=== PATIENT | female | born 1990 | race American Indian/Alaskan Native ===

== ENCOUNTER 2021-06-04 14:37 | Emergency (ER) | payer MEDICAID ==
--- NOTE | 2021-06-04 15:02 | Emergency Department Report ---
HPI - HPI HPI: Triage The patient is a 31-year-old female present with a chief complaint of chest pain. The patient states for the past 2 days she has had intermittent left- sided chest pain described as feeling as though someone is holding her heart. Patient denies shortness of breath, nausea/vomiting or diaphoresis with her chest pain. Patient denies any recent flights or long car trips. Patient denies pleurisy. Patient denies history of cough or fever. Patient has been vaccinated against Covid and received her second vaccination approximately 2 weeks ago. There is no family history of premature heart disease <FLAKITA SOL - Last Filed: 06/04/21 14:58> <KWAKUSTAN - Last Filed: 06/05/21 01:11> - General Time Seen by Provider: 06/04/21 14:48 ED Past Medical Hx - Past Medical History Previous Medical History?: No - Surgical History Past Surgical History?: No - Family History Family history: no significant - Social History Substance Use Type: Alcohol (Occasional), Marijuana <FLAKITA SOL - Last Filed: 06/04/21 14:58> ED Review of Systems ROS: Stated complaint: CHEST PAIN Other details as noted in HPI Constitutional: denies: diaphoresis, fever Eyes: denies: eye pain ENT: denies: throat pain Respiratory: denies: cough, shortness of breath Cardiovascular: chest pain Endocrine: no symptoms reported Gastrointestinal: denies: nausea, vomiting Genitourinary: denies: dysuria Musculoskeletal: denies: back pain Neurological: denies: headache <FLAKITA SOL - Last Filed: 06/04/21 14:58> ROS: Stated complaint: CHEST PAIN Other details as noted in HPI <KWAKUSTAN - Last Filed: 06/05/21 01:11> Physical Exam - Physical Exam Physical Exam: GENERAL: The patient is well-developed well-nourished female sitting on stretcher not appearing to be in acute distress. [] HEENT: Normocephalic. Atraumatic. Extraocular motions are intact. Patient has moist mucous membranes. NECK: Supple. Trachea midline CHEST/LUNGS: Clear to auscultation. There is no respiratory distress noted. HEART/CARDIOVASCULAR: Regular. There is no tachycardia. There is no gallop rub or murmur. ABDOMEN: Abdomen is soft, nontender. Patient has normal bowel sounds. There is no abdominal distention. SKIN: There is no rash. There is no edema. There is no diaphoresis. NEURO: The patient is awake, alert, and oriented. The patient is cooperative. The patient has no focal neurologic deficits. The patient has normal speech and gait. GCS 15 MUSCULOSKELETAL: There is no evidence of acute injury. <FLAKITA SOL - Last Filed: 06/04/21 14:58> - Physical Exam Vital Signs: Vital Signs 06/04/21 15:12 Temperature 98.3 F Pulse Rate 81 Respiratory 16 Rate Blood Pressure 121/83 O2 Sat by Pulse 100 Oximetry <STAN AMES - Last Filed: 06/05/21 01:11> ED Course Vital Signs 06/04/21 15:12 Temperature 98.3 F Pulse Rate 81 Respiratory 16 Rate Blood Pressure 121/83 O2 Sat by Pulse 100 Oximetry - Reevaluation(s) Reevaluation #1: 06/04/21 16:47 Assumed care of patient. The patient is a 31-year-old female, who denies significant past medical history, who denies , who denies personal and family history of CAD, DVT, pulmonary embolism, who does not smoke anything, presenting to the ER with months of intermittent left-sided chest discomfort. There is no vomiting, diaphoresis or exertional shortness of breath. She indicates she is pain-free at this time. Upon my assessment, she is noted to be typing and playing on a laptop computer, and in no acute distress. The patient is not currently tachycardic, tachypneic or hypoxic, she denies DVT and pulmonary embolism risk factors, she is low risk by Wells criteria for pulmonary embolism, and she is PERC negative. In addition, a D-dimer which was ordered prior to my personal evaluation is negative for acute findings. EKG nonspecific with juvenile T wave inversion, troponin negative x1 in the context of months of symptoms. Given that symptoms present for greater than 8 hours, as per the [employer] clinical policy, acute myocardial infarction may be ruled out with 1 set of cardiac enzymes, and this patient is furthermore low risk for major adverse cardiac event as per heart score. Patient medicated appropriately, counseled appropriately, she may follow-up with an outpatient primary care doctor and/or art objects supervisor. Patient also requested copies of laboratory studies and EKG, which I provided to the patient. Patient indicated that she is reliable to follow-up with outpatient cardiology. Return precautions are reviewed. All questions answered. <STAN AMES - Last Filed: 06/05/21 01:11> ED Medical Decision Making - EKG Data -: EKG Interpreted by Me EKG shows normal: sinus rhythm, axis, QRS complexes Rate: normal - EKG Data When compared to previous EKG there are: previous EKG unavailable Interpretation: nonspecific ST-T wave estella (T wave inversion lead V2) - Differential Diagnosis Musculoskeletal chest pain, PE, ACS, pericarditis, GERD <FLAKITA SOL - Last Filed: 06/04/21 14:58> - Lab Data Result diagrams: 06/04/21 15:20 06/04/21 15:20 Vital Signs 06/04/21 15:12 Temperature 98.3 F Pulse Rate 81 Respiratory 16 Rate Blood Pressure 121/83 O2 Sat by Pulse 100 Oximetry Lab Results 06/04/21 06/04/21 06/04/21 Range/Units 15:20 15:20 15:20 WBC 3.8 L (4.5-11.0) K/mm3 RBC 4.62 (3.65-5.03) M/mm3 Hgb 13.0 (10.1-14.3) gm/dl Hct 39.2 (30.3-42.9) % MCV 85 (79-97) fl MCH 28 (28-32) pg MCHC 33 (30-34) % RDW 12.6 L (13.2-15.2) % Plt Count 371 (140-440) K/mm3 Lymph % (Auto) 31.1 (13.4-35.0) % Morrow % (Auto) 8.5 H (0.0-7.3) % Eos % (Auto) 3.1 (0.0-4.3) % Baso % (Auto) 0.7 (0.0-1.8) % Lymph # (Auto) 1.2 (1.2-5.4) K/mm3 Morrow # (Auto) 0.3 (0.0-0.8) K/mm3 Eos # (Auto) 0.1 (0.0-0.4) K/mm3 Baso # (Auto) 0.0 (0.0-0.1) K/mm3 Seg Neutrophils % 56.6 (40.0-70.0) % Seg Neutrophils # 2.2 (1.8-7.7) K/mm3 D-Dimer 144.78 (0-234) ng/mlDDU Sodium 136 L (137-145) mmol/L Potassium 4.2 (3.6-5.0) mmol/L Chloride 103.3 (98-107) mmol/L Carbon Dioxide 25 (22-30) mmol/L Anion Gap 12 mmol/L BUN 9 (7-17) mg/dL Creatinine 0.6 (0.6-1.2) mg/dL Estimated GFR > 60 ml/min BUN/Creatinine Ratio 15 % Glucose 85 (65-100) mg/dL Calcium 9.4 (8.4-10.2) mg/dL Total Creatine Kinase 94 (30-135) units/L CK-MB (CK-2) < 1.0 (0.0-4.0) ng/mL CK-MB (CK-2) Rel Index 1.0 (0-4) Troponin T < 0.010 (0.00-0.029) ng/mL HCG, Qual (Negative) 06/04/21 Range/Units 15:20 WBC (4.5-11.0) K/mm3 RBC (3.65-5.03) M/mm3 Hgb (10.1-14.3) gm/dl Hct (30.3-42.9) % MCV (79-97) fl MCH (28-32) pg MCHC (30-34) % RDW (13.2-15.2) % Plt Count (140-440) K/mm3 Lymph % (Auto) (13.4-35.0) % Morrow % (Auto) (0.0-7.3) % Eos % (Auto) (0.0-4.3) % Baso % (Auto) (0.0-1.8) % Lymph # (Auto) (1.2-5.4) K/mm3 Morrow # (Auto) (0.0-0.8) K/mm3 Eos # (Auto) (0.0-0.4) K/mm3 Baso # (Auto) (0.0-0.1) K/mm3 Seg Neutrophils % (40.0-70.0) % Seg Neutrophils # (1.8-7.7) K/mm3 D-Dimer (0-234) ng/mlDDU Sodium (137-145) mmol/L Potassium (3.6-5.0) mmol/L Chloride (98-107) mmol/L Carbon Dioxide (22-30) mmol/L Anion Gap mmol/L BUN (7-17) mg/dL Creatinine (0.6-1.2) mg/dL Estimated GFR ml/min BUN/Creatinine Ratio % Glucose (65-100) mg/dL Calcium (8.4-10.2) mg/dL Total Creatine Kinase (30-135) units/L CK-MB (CK-2) (0.0-4.0) ng/mL CK-MB (CK-2) Rel Index (0-4) Troponin T (0.00-0.029) ng/mL HCG, Qual Negative (Negative) - EKG Data -: EKG Interpreted by Me EKG shows normal: sinus rhythm Rate: normal - EKG Data 06/04/21 16:47 EKG is interpreted by myself 16: 47 There is no prior EKG available for comparison. Sinus rhythm, 72 bpm. Normal axis, normal intervals, normal P wave axis, juvenile T wave inversion, abnormal EKG, not a STEMI. There is no prior for comparison. - Radiology Data Radiology results: pending, report reviewed, image reviewed CHEST 2 VIEWS INDICATION / CLINICAL INFORMATION: chest pain. COMPARISON: None available. FINDINGS: SUPPORT DEVICES: None. HEART / MEDIASTINUM: No significant abnormality. LUNGS / PLEURA: No significant pulmonary or pleural abnormality. No pneumothorax. ADDITIONAL FINDINGS: No significant additional findings. IMPRESSION: 1. No acute findings. Signer Name: Pritesh Parekh MD Signed: 06/04/2021 4:00 PM <STAN AMES - Last Filed: 06/05/21 01:11> Critical care attestation.: If time is entered above; I have spent that time in minutes in the direct care of this critically ill patient, excluding procedure time. <FLAKITA SOL - Last Filed: 06/04/21 14:58> Critical care attestation.: If time is entered above; I have spent that time in minutes in the direct care of this critically ill patient, excluding procedure time. <STAN AMES Last Filed: 06/05/21 01:11> ED Disposition <SYCarlosFLAKITA Jayla - Last Filed: 06/04/21 14:58> Is pt being admited?: No Does the pt Need Aspirin: No <STAN AMES Last Filed: 06/05/21 01:11> Clinical Impression: History of chest pain Disposition: HOME / SELF CARE / HOMELESS Condition: Good Instructions: Nonspecific Chest Pain, Adult Additional Instructions: Recommend that patient minimize/avoid consumption of heavy and spicy foods. P atient may take [id number] low-dose ibuprofen, 400 mg by mouth, with food, every 6 hours, alternating with Tylenol/acetaminophen, 500 mg by mouth, every 4-6 hours, as needed for pain. Recommend the patient avoid consumption of tobacco, smoke products and alcohol. Recommend the patient follow-up with art objects supervisor within the next 3 to 5 days. For the patient's convenience, a number of local cardiology practices have been listed that she may follow-up with. Please contact any listed cardiology practices to arrange close outpatient follow-up. Please return to the emergency room right away with new pain, worsened pain, migration of pain, rectal vomiting, change in mental status, confusion, inability to tolerate liquid feeds, new, worsened or different symptoms not present on the initial emergency room evaluation. Referrals: [facility] [Provider Group] - 3-5 Days [facility] [Provider Group] - 3-5 Days [facility] [Provider Group] - 3-5 Days Heart Score - HEART Score History: Slightly suspicious EKG: Non-specific Age: < 45 Risk factors: No known risk factors <FLAKITA SOL Jayla - Last Filed: 06/04/21 14:58> - HEART Score History: Slightly suspicious EKG: Non-specific Age: < 45 Risk factors: 1-2 risk factors Troponin: < normal limit HEART Score: 2 - EKG Read Time Time EKG Completed: 16:47 EKG Read Time: 16:47 - Critical Actions Critical Actions: 0-3 pts:0.9-1.7%risk of adverse cardiac event.Candidate for discharge <STAN AMES - Last Filed: 06/05/21 01:11>
[2021-06-04 15:15] VITALS: BP 121/83
[2021-06-04 15:30] LABS: Basophils % (Auto) 0.7 % (0.0-1.8); Eosinophils # (Auto) 0.1 K/mm3 (0.0-0.4); Eosinophils % (Auto) 3.1 % (0.0-4.3); Hematocrit 39.2 % (30.3-42.9); Lymphocytes # (Auto) 1.2 K/mm3 (1.2-5.4); Lymphocytes % (Auto) 31.1 % (13.4-35.0); Mean Corpuscular HGB Conc 33 % (30-34); Mean Corpuscular Volume 85 fl (79-97); Monocytes # (Auto) 0.3 K/mm3 (0.0-0.8); Monocytes % (Auto) 8.5 % (0.0-7.3); Platelet Count 371 K/mm3 (140-440); Red Blood Count 4.62 M/mm3 (3.65-5.03); Red Cell Distribution Width 12.6 % (13.2-15.2)
[2021-06-04 15:55] LABS: Blood Urea Nitrogen 9 mg/dL (7-17); Calcium 9.4 mg/dL (8.4-10.2); Hemolysis Index 3
[2021-06-04 16:09] LABS: BUN/Creatinine Ratio 15; Creatine Kinase MB < 1.0 ng/mL (0.0-4.0)
[2021-06-04] MEDS ORDERED: ACETAMINOPHEN 500 MG TAB PO ONE (16:44)
[2021-06-04] MEDS ORDERED: IBUPROFEN 400 MG TAB PO ONE (16:44)
--- NOTE | 2021-06-04 17:05 | XRay Report ---
CHEST 2 VIEWS INDICATION / CLINICAL INFORMATION: chest pain. COMPARISON: None available. FINDINGS: SUPPORT DEVICES: None. HEART / MEDIASTINUM: No significant abnormality. LUNGS / PLEURA: No significant pulmonary or pleural abnormality. No pneumothorax. ADDITIONAL FINDINGS: No significant additional findings. IMPRESSION: 1. No acute findings. Signer Name: Pritesh Parekh MD Signed: 06/04/2021 5:00 PM Workstation Name: [id number]
--- NOTE | 2021-06-07 09:42 | Electrocardiograph Report ---
[facility] Test Date: 2021-06-04 Test Time: 14:44:21 Pat Name: ROSA TRINIDAD Department: Room: Gender: F Cad Detailer: MIRIAM : 1990 Requested By: FLAKITA SOL Order Number: [id number] Reading MD: Larry Mcknight Measurements Intervals [place] Rate: 72 P: 77 LA: 127 QRS: 68 QRSD: 81 T: 59 QT: 364 QTc: 395 Interpretive Statements Sinus rhythm Atrial premature complex LAE, consider biatrial enlargement No previous ECG available for comparison Electronically Signed On 06-07-2021 9:41:57 EDT by Larry Mcknight
== END 2021-06-04 18:32 | disposition home or self-care (01) ==
LOC: ED 14:37
DX: R07.9 Chest pain, unspecified (principal)
CPT/HCPCS: 36415; 71046; 80048; 82550; 82553; 84484; 84703; 85025; 85379; 93005; 99283